=== PATIENT | female | born 1985 | race African-American/Black ===

== ENCOUNTER → 2018-01-17 16:47 | Outpatient (CLI) | payer MEDICAID | END | disposition home or self-care (01) | LOC: D.MRI 11-23 13:00 | DX: M54.5 Low back pain (principal) ==

== ENCOUNTER → 2018-01-24 12:30 | Outpatient (CLI) | payer MEDICAID | END | disposition home or self-care (01) | LOC: D.MRI 12:30 | DX: M54.6 Pain in thoracic spine (principal) ==